=== PATIENT | female | born 1930 | race Caucasian/White ===

== ENCOUNTER 2019-12-22 12:21 | Emergency (ER) | payer MEDICARE, MEDICAID ==
--- NOTE | 2019-12-22 13:19 | ED Physician Documentation ---
PD HPI NVD - Stated complaint Stated Complaint: VOMITING - Chief complaint Chief Complaint: Abd Pain - History obtained from History obtained from: Patient - History of Present Illness Timing - onset: How many hours ago (1-2) Timing - details: Abrupt onset (she was riding in car with her friend. They were visiting [place] today and her friend says the patient was feeling some "car sickness" then started to have pronounced nausea and vomiting. Interacting okay and conversant. No abd pain.) Associated symptoms: Dizzy (she is noting vertigo with head movement.). No: Fever, Abdominal pain, Chest pain, Near syncope / syncope Contributing factors: Travel (riding in car with her friend for several hours today.). No: Sick contact, Bad food, Recent antibiotics Improved by: Laying still. No: Vomiting Worsened by: Moving Similar symptoms before: Has not had sx before Recently seen: Not recently seen Review of Systems Constitutional: denies: Fever, Chills Eyes: denies: Decreased vision Ears: denies: Ear pain, Tinnitus/ringing Nose: denies: Rhinorrhea / runny nose, Congestion Throat: denies: Sore throat Cardiac: denies: Chest pain / pressure Respiratory: denies: Cough GI: reports: Nausea, Vomiting. denies: Abdominal Pain, Diarrhea Neurologic: denies: Focal weakness, Numbness, Near syncope, Altered mental status, Headache PD PAST MEDICAL HISTORY - Past Medical History Cardiovascular: None Respiratory: None Neuro: None Endocrine/Autoimmune: None - Present Medications Home Medications: Ambulatory Orders Medication Instructions Recorded Confirmed Meclizine [Antivert] 25 mg PO Q6H PRN #30 tablet 12/22/19 Ondansetron Odt [Zofran] 4 mg TL Q6H PRN #10 tablet 12/22/19 dexAMETHasone [Decadron] 4 mg PO DAILY #5 tablet 12/22/19 - Allergies Allergies/Adverse Reactions: Allergies Allergy/AdvReac Type Severity Reaction Status Date / Time No Known Drug Allergies Allergy Verified 12/22/19 12:41 - Living Situation Living Situation: reports: Alone Living Arrangement: reports: At home (lives in [place]; visiting [place] with friend for the day.) PD ED PE NORMAL - Vitals Vital signs reviewed: Yes - General General: Alert and oriented X 3, Well developed/nourished, Other (appears uncomfortable with repeated dry heaving. ) - HEENT HEENT: PERRL, EOMI (with notable nystagmus to the right with head movement. ), Pharynx benign - Neck Neck: Supple, no meningeal sign, No adenopathy, No bruit - Cardiac Cardiac: RRR, Other (1/6 murmur left sternal border; does not radiate to neck. ) - Respiratory Respiratory: Clear bilaterally - Abdomen Abdomen: Soft, Non tender - Derm Derm: Normal color, Warm and dry - Extremities Extremities: No tenderness to palpate, Normal ROM s pain - Neuro Neuro: Alert and oriented X 3, [employer] 2-12 intact, No motor deficit, No sensory deficit, Normal speech Eye Opening: Spontaneous Motor: Obeys Commands Verbal: Oriented GCS Score: 15 Results - Vitals Vitals: Vital Signs - 24 hr 12/22/19 12/22/19 12/22/19 12:41 13:42 15:27 Temperature 36.6 C Heart Rate 54 L 51 L 53 L Respiratory 16 16 15 Rate Blood Pressure 175/70 H 212/62 H 182/59 H O2 Saturation 94 96 96 Oxygen O2 Source Room air - Labs Labs: Laboratory Tests 12/22/19 12/22/19 12/22/19 12:47 13:40 13:40 WBC 10.0 RBC 3.94 L Hgb 12.2 Hct 36.2 L MCV 91.9 MCH 31.0 MCHC 33.7 RDW 11.9 L Plt Count 195 MPV 10.9 H Neut # (Auto) 7.1 H Lymph # (Auto) 2.1 [place] # (Auto) 0.5 Eos # (Auto) 0.3 Baso # (Auto) 0.1 Absolute Nucleated RBC 0.00 Nucleated RBC % 0.0 Sodium 134 L Potassium 3.8 Chloride 95 L Carbon Dioxide 28 Anion Gap 11.0 BUN 52 H Creatinine 2.4 H Estimated GFR (MDRD) 19 L Glucose 241 H POC Whole Bld Glucose 243 H Calcium 10.2 Total Bilirubin 0.5 AST 18 ALT 14 Alkaline Phosphatase 49 Troponin I High Sens Total Protein 7.1 Albumin 4.0 Globulin 3.1 Albumin/Globulin Ratio 1.3 Lipase 35 Urine Color Urine Clarity Urine pH Ur Specific Lapel Urine Protein Urine Glucose (UA) Urine Ketones Urine Occult Blood Urine Nitrite Urine Bilirubin Urine Urobilinogen Ur Leukocyte Esterase Urine RBC Urine WBC Ur Squamous Epith Cells Amorphous Sediment Urine Bacteria Ur Microscopic Review Urine Culture Comments 12/22/19 12/22/19 13:40 14:18 WBC RBC Hgb Hct MCV MCH MCHC RDW Plt Count MPV Neut # (Auto) Lymph # (Auto) [place] # (Auto) Eos # (Auto) Baso # (Auto) Absolute Nucleated RBC Nucleated RBC % Sodium Potassium Chloride Carbon Dioxide Anion Gap BUN Creatinine Estimated GFR (MDRD) Glucose POC Whole Bld Glucose Calcium Total Bilirubin AST ALT Alkaline Phosphatase Troponin I High Sens 21.3 H* Total Protein Albumin Globulin Albumin/Globulin Ratio Lipase Urine Color YELLOW Urine Clarity HAZY Urine pH 5.5 Ur Specific Lapel 1.015 Urine Protein NEGATIVE Urine Glucose (UA) 100 H Urine Ketones NEGATIVE Urine Occult Blood TRACE-LYSE Urine Nitrite NEGATIVE Urine Bilirubin NEGATIVE Urine Urobilinogen 0.2 (NORMAL) Ur Leukocyte Esterase SMALL H Urine RBC 6-10 H Urine WBC 11-25 H Ur Squamous Epith Cells MOD Squamous H Amorphous Sediment Rare Urine Bacteria Few Ur Microscopic Review INDICATED Urine Culture Comments NOT INDICATED PD MEDICAL DECISION MAKING - ED course Complexity details: re-evaluated patient (fairly well improved with meclizine and diazepam. Able to move slowly without vomiting. She and her friend are okay with slowly heading out and getting home to [place]. ), considered differential (initially presenting as nausea and vomiting, but on history/exam, does seem to be triggered by head movement. Better holding still. has nystagmus. No other deficits. ), d/w patient Departure - Departure Disposition: 01 Home, Self Care Clinical Impression: Positional vertigo Nausea and vomiting Qualifiers: Vomiting type: unspecified Vomiting Intractability: non-intractable Qualified Code(s): R11.2 - Nausea with vomiting, unspecified Condition: Stable Record reviewed to determine appropriate education?: Yes Instructions: ED Vertigo Unspecified Follow-Up: Briseyda Rodarte MD [Primary Care Provider] - Prescriptions: Meclizine [Antivert] 25 mg PO Q6H PRN #30 tablet PRN Reason: Vertigo dexAMETHasone [Decadron] 4 mg PO DAILY #5 tablet Ondansetron Odt [Zofran] 4 mg TL Q6H PRN #10 tablet PRN Reason: Nausea / Vomiting Comments: Slow and gentle movements to minimize head motion and decrease the vertigo. Ondansetron if needed for nausea. Meclizine every 6-8 hours if needed for the vertigo. This can be caused by small debris in the inner ear causing disruption of the position sense. However sometimes there is inflammation instead so you can add Decadron steroid for inflammation daily for 2 or 3 days. Recheck if not improved well over the next couple of days and recheck sooner if worsening. Discharge Date/Time: 12/22/19 16:20
[2019-12-22] MEDS ORDERED: ONDANSETRON 4 MG/2 ML VIAL IVP STA (13:21)
[2019-12-22] MEDS ORDERED: SODIUM CHLORIDE 0.9% 1,000 ML IV STA (13:21)
[2019-12-22] MEDS ORDERED: diazePAM INJ 5 MG/ML SYRINGE IVP STA (13:36)
[2019-12-22] MEDS ORDERED: MECLIZINE 12.5 MG TABLET PO STA ×2 (13:36→15:50)
[2019-12-22 13:46] LABS: BASOPHILS # (AUTO) 0.1 10^3/uL (0.0-0.1); BASOPHILS % (AUTO) 0.7 %; EOSINOPHILS # (AUTO) 0.3 10^3/uL (0.0-0.7); EOSINOPHILS % (AUTO) 2.5 %; HGB - HEMOGLOBIN 12.2 g/dL (12.0-16.0); LYMPHOCYTES # (AUTO) 2.1 10^3/uL (1.5-3.5); LYMPHOCYTES % (AUTO) 20.5 %; MEAN CORPUSCULAR HGB CONC 33.7 g/dL (32.0-36.0); MEAN CORPUSCULAR VOLUME 91.9 fL (81.0-99.0); MEAN PLATELET VOLUME 10.9 fL (7.9-10.8); MONOCYTES # (AUTO) 0.5 10^3/uL (0.0-1.0); MONOCYTES % (AUTO) 5.3 %; NEUTROPHILS # (AUTO) 7.1 10^3/uL (1.5-6.6); NEUTROPHILS % (AUTO) 70.6 %; PLT - PLATELET COUNT 195 10^3/uL (130-450); RED BLOOD COUNT 3.94 10^6/uL (4.20-5.40); RED CELL DISTRIBUTION WIDTH 11.9 % (12.0-15.0)
[2019-12-22 13:58] LABS: ALBUMIN/GLOBULIN RATIO 1.3 (1.0-2.2); BILIRUBIN,TOTAL 0.5 mg/dL (0.2-1.0); CALCIUM 10.2 mg/dL (8.5-10.3); CREATININE 2.4 mg/dL (0.4-1.0); TOTAL PROTEIN 7.1 g/dL (6.7-8.2)
[2019-12-22 14:21] LABS: BILIRUBIN,URINE NEGATIVE (NEGATIVE); CLARITY,URINE HAZY (CLEAR); GLUCOSE, URINE (UA) 100 mg/dL (NEGATIVE); KETONES,URINE (UA) NEGATIVE (NEGATIVE); LEUKOCYTE ESTERASE, URINE SMALL (NEGATIVE); NITRITE,URINE NEGATIVE (NEGATIVE); OCCULT BLOOD,URINE TRACE-LYSE (NEGATIVE); PH,URINE 5.5 PH (5.0-7.5); PROTEIN,URINE NEGATIVE (NEGATIVE); UROBILINOGEN,URINE 0.2 (NORMAL) E.U./dL (NORMAL)
[2019-12-22 14:27] LABS: AMORPHOUS SEDIMENT,UR Rare /LPF; BACTERIA,URINE Few /HPF (None Seen); SQUAMOUS EPITHELIAL CELL,UR MOD Squamous (<= Few)
--- NOTE | 2019-12-22 14:29 | XRAY Report ---
PROCEDURE: Chest 1 View X-Ray INDICATIONS: Chest Pain TECHNIQUE: One view of the chest was acquired. COMPARISON: None. FINDINGS: Surgical changes and devices: Surgical clips projecting the right upper quadrant. Lungs and pleura: No pleural effusions or pneumothorax. Lungs are clear. Mediastinum: Mediastinal contours appear normal. Heart size is normal. Bones and chest wall: No suspicious bony lesions. Overlying soft tissues appear unremarkable. IMPRESSION: No acute disease. Reviewed by: Trevor Hair MD on 12/22/2019 2:28 PM PDT Approved by: Trevor Hair MD on 12/22/2019 2:28 PM PDT Station ID: [id number]
[2019-12-22 15:28] VITALS: BP 182/59
== END 2019-12-22 16:20 | disposition home or self-care (01) ==
LOC: ED 12:21
DX: H81.10 Benign paroxysmal vertigo, unspecified ear (principal); R11.2 Nausea with vomiting, unspecified; I48.91 Unspecified atrial fibrillation; I45.10 Unspecified right bundle-branch block
CPT/HCPCS: 36415; 71045; 80053; 81001; 83690; 84484; 85025; 93005; 96361; 96374; 96375; 99284; A9270; 81003; 87086